=== PATIENT | male | born 1975 | race Caucasian/White ===

== ENCOUNTER 2022-07-04 11:59 | Emergency (ER) | payer BC ==
[~2022-07-04] VITALS: Ht 182.9 cm; Wt 77.1 kg
--- OUTSIDE RECORDS SUMMARY | 2022-07-04 14:08 | XMS ---
PreManage Notification: [employer] Events No recent Security Events currently on file CRITERIA MET - [facility] - 2 Visits in 30 Days CARE PROVIDERS There are no care providers on record at this time. Cristobal has no Care Guidelines for this patient. Nel VISIT COUNT (12 MO.) [address] TOTAL 4 NOTE: Visits indicate total known visits. [place] [place] [facility] COMPLAINT: - MEDICAL CLEARANCE 06/27/2022 23:27 [facility] TYPE: Emergency DIAGNOSES: - Altered Mental Status - Strange and inexplicable behavior - EMS 02/03/2022 19:42 [facility] TYPE: Emergency DIAGNOSES: - Mental Health Crisis - Anxiety disorder, unspecified - MHE - Essential (primary) hypertension - Schizoaffective disorder, unspecified 02/02/2022 20:53 [facility] TYPE: Emergency DIAGNOSES: - Mental Health Crisis - Insomnia, unspecified - insomnia, anxiety - Anxiety INPATIENT VISIT TRACKING (12 MO.) No inpatient visits to display in this time frame [email or web address]
== END 2022-07-08 14:31 ==
LOC: ED 11:59
DX: F22 Delusional disorders (principal); F25.9 Schizoaffective disorder, unspecified; Z20.822 Contact with and (suspected) exposure to COVID-19
CPT/HCPCS: 36415; 80053; 81003; 84443; 85025; 96374; 99285-25; C9803; G0480; J7030; U0003